=== PATIENT | male | born 2000 | race Caucasian/White ===

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

== ENCOUNTER 2021-10-26 00:50 | Emergency (ER) | payer MEDICAID ==
[~2021-10-26] VITALS: Ht 190.5 cm; Wt 79.5 kg
[2021-10-26 01:01] VITALS: BP 157/80
--- NOTE | 2021-10-26 03:20 | NUR ---
[facility] REPORTS FALLING ONTO A RUBEN BEAM BOTTLE CAUSING A D3-4 INCH LEFT MEDIAL WRIST LACERATION. BLEEDING CONTROLLED. PATIENT HAS [facility] INTACT PROXIMAL AND DISTAL
[2021-10-26] MEDS ORDERED: LIDOcaine 1% W/epiNEPHrine 1:100,000 20ml vial SQ ONE ×2 (03:25→03:40)
== END 2021-10-26 04:29 | disposition home or self-care (01) ==
LOC: ER 00:51
DX: S51.812A Laceration without foreign body of left forearm, initial encounter (principal); F15.90 Other stimulant use, unspecified, uncomplicated; Z98.890 Other specified postprocedural states; W25.XXXA Contact with sharp glass, initial encounter; Y93.89 Activity, other specified; Y92.89 Other specified places as the place of occurrence of the external cause; Y99.9 Unspecified external cause status
CPT/HCPCS: 12002; 73110; 99283; J3490

== ENCOUNTER 2022-04-16 23:34 | Emergency (ER) | payer MEDICAID ==
[~2022-04-16] VITALS: Ht 190.5 cm; Wt 79.5 kg
[2022-04-16 23:43] VITALS: BP 141/90
[2022-04-17] MEDS ORDERED: cephalexin 250mg capsule PO ONE (00:05)
[2022-04-17] MEDS ORDERED: sulfamethoxazole/trimethoprim DS (800/160mg) tablet PO ONE (00:05)
[2022-04-17] MEDS ORDERED: CEPH-585 PO (00:07)
[2022-04-17] MEDS ORDERED: SULF1TAB45 PO (00:07)
--- NOTE | 2022-04-17 00:55 | NUR ---
[facility] contacted about removing Pt ankle monitor. They were unable to reach anybody in the probation department to come remove monitor. [facility] recommended removing the monitor, and keeping it here for SO to retrieve, monitor should indicate location where monitor was removed and [facility] is aware.
== END 2022-04-17 01:05 | disposition home or self-care (01) ==
LOC: ER 23:35
DX: L03.116 Cellulitis of left lower limb (principal); F15.10 Other stimulant abuse, uncomplicated; Z79.2 Long term (current) use of antibiotics; Z79.899 Other long term (current) drug therapy
CPT/HCPCS: 99283

== ENCOUNTER 2023-11-10 18:40 | Emergency (ER) | payer MEDICAID ==
[~2023-11-10] VITALS: Ht 190.5 cm; Wt 97.7 kg
[2023-11-10 18:59] VITALS: TEMP 98
[2023-11-10 20:26] VITALS: BP 146/69; PULSE 74; RESP 17; O2SAT 97
== END 2023-11-10 20:29 ==
LOC: ER 18:41
DX: T40.2X1A Poisoning by other opioids, accidental (unintentional), initial encounter (principal); R41.82 Altered mental status, unspecified; Y92.89 Other specified places as the place of occurrence of the external cause; F15.10 Other stimulant abuse, uncomplicated; Z79.899 Other long term (current) drug therapy
CPT/HCPCS: 99283